=== PATIENT | male | born 1985 | race African-American/Black ===

== ENCOUNTER 2018-06-07 14:05 | Emergency (ER) | payer SELFPAY ==
[~2018-06-07] VITALS: Ht 170.2 cm; Wt 78.4 kg
[2018-06-07] MEDS ORDERED: IBUPROFEN 600MG TABLET PO STA (15:37)
[2018-06-07 15:54] VITALS: BP 122/78
== END 2018-06-07 16:31 | disposition home or self-care (01) ==
LOC: ER 14:22
DX: S16.1XXA Strain of muscle, fascia and tendon at neck level, initial encounter (principal); V43.52XA Car driver injured in collision with other type car in traffic accident, initial encounter; Y93.89 Activity, other specified; Y92.89 Other specified places as the place of occurrence of the external cause; Y99.8 Other external cause status
CPT/HCPCS: 72125; 99284